=== PATIENT | male | born 1985 | race Caucasian/White ===

== ENCOUNTER 2017-02-05 17:27 | Emergency (ER) | payer BC, MEDICAID ==
[~2017-02-05] VITALS: Ht 182.9 cm; Wt 85.2 kg
[~2017-02-05 17:27] MED LIST: ALBU18HF INH
[2017-02-05 19:53] LABS: HEMOGLOBIN 14.2 g/dL (13.7-18.0); WHITE BLOOD COUNT 8.8 x10^3/uL (3.4-10)
[2017-02-05 20:02] LABS: ASPARTATE AMINO TRANSFERASE 46 U/L (15-37); BLOOD UREA NITROGEN 12 mg/dL (7-18)
[2017-02-05 20:34] VITALS: BP 97/58
[2017-02-05 20:40] LABS: IS PT STATUS REG ER OR PRE ER? YES
== END 2017-02-05 21:29 | disposition home or self-care (01) ==
LOC: ED 21:07
DX: R55 Syncope and collapse (principal); R06.00 Dyspnea, unspecified; R74.8 Abnormal levels of other serum enzymes
CPT/HCPCS: 36415; 71020; 80053; 84484; 85025; 93005; 99285